=== PATIENT | male | born 1985 | race African-American/Black ===

== ENCOUNTER 2017-09-14 03:58 | Emergency (ER) | payer OTHER ==
[~2017-09-14] VITALS: Ht 172.7 cm; Wt 150.0 kg
[~2017-09-14 03:58] MED LIST: ALBU6.7H INH; METHO500 PO; PERC10TA27 PO
[2017-09-14 04:08] VITALS: BP 187/101; PULSE 92; RESP 18; TEMP 97.4; O2SAT 98
--- NOTE | 2017-09-14 04:24 | PD ---
HPI Chief Complaint: Nosebleed Time Seen by Provider: 04:17 Travel History International Travel<30 days: No Contact w/Intl Traveler<30days: No Traveled to known affect area: No History of Present Illness HPI Patient is a 31-year-old male presents emergency department for evaluation of nosebleed, the patient states his been coming out of both nares for the past hour, passing small clots, has not been spitting of blood no choking. No history of easy bruising or bleeding otherwise healthy not on any blood thinners. Symptoms moderate, nasal, constant, associated signs symptoms in context as above PFSH Past Medical History Asthma: Yes (as a child) Cerebrovascular Accident: No Diabetes: No Diminished Hearing: No Respiratory: Yes (ASTHMA) Myocardial Infarction: No Tetanus Vaccination: Unknown Past Surgical History Other Surgery: Yes (pt states as a child he does not remember) Social History Alcohol Use: Yes (occasionally) Tobacco Use: No Substance Use: No Allergies-Medications (Allergen,Severity, Reaction): Coded Allergies: No Known Allergies (Unverified Adverse Reaction, Unknown, 09/14/17) Reported Meds & Prescriptions Reported Meds & Active Scripts Active Afrin Nasal [place] (Oxymetazoline HCl) 0.05% [place] 2-3 [place] EACH NARE Q12H PRN 3 Days Do not use longer than 3 days. Robaxin 500 Mg Tab (Methocarbamol) 500 Mg Tab 500 Mg PO QID Percocet 10-325 mg (Oxycodone-Acetaminophen 10-325 mg) Oxycodone 10/325 Acetaminophen Tab 1 Tab PO Q6H Proventil Hfa (Albuterol Sulfate) 6.7 Gm Aero 2 Puff INH Q4-6H PRN * SHAKE WELL BEFORE USE * Review of Systems Except as stated in HPI: all other systems reviewed are Neg Physical Exam Narrative GENERAL: Well-nourished, well-developed patient. SKIN: Focused skin assessment warm/dry. No bruising seen on his person. No petechiae. HEAD: Normocephalic. EYES: No scleral icterus. No injection or drainage. ENT: TMs clear bilaterally, there is no septal hematoma, appears to be the majority of his bleeding, from the left nare, there is some irritation. No evidence of posterior nasal bleeding. NECK: Supple, trachea midline. No JVD or lymphadenopathy. CARDIOVASCULAR: Regular rate and rhythm without murmurs, gallops, or rubs. RESPIRATORY: Breath sounds equal bilaterally. No accessory muscle use. GASTROINTESTINAL: Abdomen soft, non-tender, nondistended. MUSCULOSKELETAL: No cyanosis, or edema. BACK: Nontender without obvious deformity. No CVA tenderness. Data Data Last Documented VS Vital Signs Date Time Temp Pulse Resp B/P (MAP) Pulse Ox O2 Delivery O2 Flow Rate FiO2 09/14/17 04:08 97.4 92 18 187/101 (129) 98 Orders Orders Oxymetazoline 0.05% Sharif [place] (Afrin 0.0 (09/14/17 04:30) Ed Discharge Order (09/14/17 05:12) [facility] Medical Decision Making Medical Screen Exam Complete: Yes Emergency Medical Condition: Yes Differential Diagnosis Nasal bleeding, anterior nasal bleeding, posterior nasal bleeding, coagulopathy seems unlikely peer Narrative Course Patient room to the emergency department, Afrin was applied to both nares, this controlled his bleeding completely. On reexamination there is some irritation on the anterior nare on the left side, discussed symptomatic management including Afrin nasal spray for the next 3 days. Discussed follow-up with a primary care physician and return to ED criteria. He is stable for Diagnosis Primary Impression: Epistaxis Departure Forms: Tests/Procedures, Work Release Enter return to work date: September 15, 2017 Med/Other Pt SpecificInfo: Prescription(s) given Scripts Oxymetazoline Nasal (Afrin Nasal [place]) 0.05% [place] 2-3 SPRAY EACH NARE Q12H Y for BLEEDING for 3 Days, #1 BOTTLE 0 Refills Do not use longer than 3 days. Prov: Vicente Pozo MD 09/14/17 Disposition: 01 DISCHARGE HOME Condition: Stable Vicente Pozo MD September 14, 2017 04:24
[2017-09-14] MEDS ORDERED: OXYMETAZOLINE HCL 0.05% 15 ML NASAL SPRAY NASAL ONE (04:30)
[2017-09-14] MEDS ORDERED: AFRI0.052 EACH NARE (05:11)
== END 2017-09-14 05:25 | disposition home or self-care (01) ==
LOC: NEPC 03:58
DX: R04.0 Epistaxis (principal)
CPT/HCPCS: 99283